=== PATIENT | female | born 1955 | race Caucasian/White ===

== ENCOUNTER → 2016-10-23 | Outpatient (CLI) | payer OTHER ==
[2015-08-20 10:36] VITALS: BP 171/96
[~2016-10-23] MED LIST: LEVOTHYROXIN0.112 MG PO; SIMVASTATIN40 M1 PO
== END ==
LOC: LAB 07:04
DX: Z00.00 Encounter for general adult medical examination without abnormal findings (principal); M81.0 Age-related osteoporosis without current pathological fracture; E03.4 Atrophy of thyroid (acquired)

== ENCOUNTER → 2016-12-22 | Outpatient (CLI) | payer OTHER ==
[2015-08-20 10:36] VITALS: BP 171/96
== END ==
LOC: LAB 07:35
DX: E03.4 Atrophy of thyroid (acquired) (principal)

== ENCOUNTER → 2017-11-01 | Outpatient (CLI) | payer BC ==
[2015-08-20 10:36] VITALS: BP 171/96
[2017-11-01 08:18] LABS: EOS # 0.2 (0.04-0.40); EOS % 2.4 % (1.0-5.0); HEMATOCRIT 43.3 % (37.0-47.0); LYMPH# 3.9 (1.50-4.00); MEAN CELL VOLUME 88 fl (78-100); MEAN CORPUSCULAR HEMOGLOBIN 29 pg (27-31); MEAN CORPUSCULAR HGB CONC 32 g/dL (33-37); MEAN PLATELET VOLUME 9.2 fl (7.4-10.4); MONO # 0.6 (0.20-0.80); PLATELET COUNT 303 K/mm3 (130-400); RED BLOOD COUNT 4.91 M/mm3 (4.10-5.30); RED CELL DISTRIBUTION WIDTH 14.7 % (11.5-14.5); WHITE BLOOD COUNT 7.8 K/mm3 (4.8-10.8)
[2017-11-01 08:34] LABS: ALBUMIN 4.6 g/dL (3.5-5.0); BUN/CREATININE RATIO 33.1 (6.0-26.0); CALCIUM 9.9 mg/dL (8.4-10.2); POTASSIUM 4.7 mmol/L (3.6-5.0); TOTAL BILIRUBIN 0.9 mg/dL (0.2-1.3); TOTAL PROTEIN 8.4 g/dL (6.3-8.2)
[2017-11-01 09:42] LABS: ERYTHROCYTE SEDIMENTATION RATE 11 mm/hr (0-30)
== END ==
LOC: LAB 07:53
PROVIDERS: Internal Medicine
DX: Z00.00 Encounter for general adult medical examination without abnormal findings (principal); M81.0 Age-related osteoporosis without current pathological fracture

== ENCOUNTER → 2017-11-05 | Outpatient (CLI) | payer BC ==
[2015-08-20 10:36] VITALS: BP 171/96
== END ==
LOC: RAD 09:57
DX: S92.355A Nondisplaced fracture of fifth metatarsal bone, left foot, initial encounter for closed fracture (principal)

== ENCOUNTER → 2017-11-30 | Outpatient (CLI) | payer BC ==
[2015-08-20 10:36] VITALS: BP 171/96
== END ==
LOC: RAD 11:52
DX: S92.355G Nondisplaced fracture of fifth metatarsal bone, left foot, subsequent encounter for fracture with delayed healing (principal)

== ENCOUNTER → 2017-12-14 | Day surgery (SDC) | payer BC ==
[2015-08-20 10:36] VITALS: BP 171/96
== END ==
LOC: MSO 14:09
DX: Z12.11 Encounter for screening for malignant neoplasm of colon (principal)
CPT/HCPCS: 00812; J2704; J7120

== ENCOUNTER → 2017-12-22 | Outpatient (CLI) | payer BC ==
[2015-08-20 10:36] VITALS: BP 171/96
== END ==
LOC: MAMMO 13:34
DX: Z12.31 Encounter for screening mammogram for malignant neoplasm of breast (principal); S92.352D Displaced fracture of fifth metatarsal bone, left foot, subsequent encounter for fracture with routine healing; M77.32 Calcaneal spur, left foot